=== PATIENT | male | born 1975 | race Caucasian/White ===

== ENCOUNTER 2022-10-25 07:00 | Outpatient (CLI) | payer BC ==
--- NOTE | 2022-10-25 11:33 | XRAY Report ---
PROCEDURE: Toe(s) LT INDICATIONS: LEFT GREAT TOE PAIN TECHNIQUE: 3 views of the first toe(s) acquired. COMPARISON: None. FINDINGS: Bones: No fractures or dislocations. No suspicious bony lesions. Soft tissues: No suspicious soft tissue densities. IMPRESSION: No acute bony abnormality. Reviewed by: Derek Chaudhry MD on 10/25/2022 10:32 AM [facility] Approved by: Derek Chaudhry MD on 10/25/2022 10:32 AM [facility] Station ID: [id number]
== END 2022-10-25 23:59 | disposition home or self-care (01) ==
LOC: DI.S 07:00
PROVIDERS: ATTEND Registered Nurse
DX: M79.675 Pain in left toe(s) (principal)
CPT/HCPCS: 73660